=== PATIENT | female | born 1930 | race Caucasian/White ===

== ENCOUNTER 2020-02-06 13:49 | Inpatient (IN) ==
[2020-02-07] MEDS: Latanoprost 2.5 ML BOTTLE BOTH EYES SCH (17:44)
[2020-02-07] MEDS: carvediloL 6.25 MG TABLET PO SCH (17:44)
[2020-02-07] MEDS ORDERED: Warfarin perPT PO PRN (18:00)
[2020-02-07] MEDS: Acetaminophen 325 MG TABLET PO SCH (22:30)
[2020-02-08 06:00] LABS: Basophils % 0.5 %; Eosinophils # 0.2 K/mcL (0.0-0.6); Eosinophils % 3.9 %; Hematocrit 28.3 % (35.3-44.9); Hemoglobin 9.4 g/dL (11.5-15.4); Immature Granulocytes % 0.2 % (0-4); Lymphocytes # 2.2 K/mcL (0.6-4.6); Lymphocytes % 36.4 %; Mean Corpuscular HGB Conc 33.2 g/dL (31.6-35.5); Mean Corpuscular Volume 96.3 fL (83.0-100.0); Mean Platelet Volume 9.7 fL (9.4-12.4); Monocytes # 0.6 K/mcL (0.0-1.3); Monocytes % 9.6 %; Neutrophils # 2.9 K/mcL (1.6-8.9); Platelet Count 155 K/mcL (140-400); Red Blood Count 2.94 M/mcL (3.82-4.97); Red Cell Distribution Width 12.8 % (11.5-14.5); Segmented Neutrophils % 49.4 %; White Blood Count 5.9 K/mcL (4.3-11.1)
[2020-02-08 06:04] LABS: INR 2.5; Prothrombin Time 28.4 Seconds (9.4-12.1)
[2020-02-08 06:16] LABS: Albumin 3.1 g/dL (3.5-5.7); Albumin/Globulin Ratio 1.1 (1.1-2.2); Bilirubin,Total 0.5 mg/dL (0.3-1.0); Calcium 8.7 mg/dL (8.6-10.3); Globulin 2.7 g/dL (2.4-3.5); Magnesium 1.9 mg/dL (1.6-2.6); Potassium 4.2 mEq/L (3.5-5.1); Total Protein 5.8 g/dL (6.4-8.9)
[2020-02-08] MEDS: Aspirin Enteric Coated 81 MG Tablet PO SCH (08:39)
[2020-02-08] MEDS: PATIENT TAKING PO SCH (08:39)
[2020-02-08] MEDS: carvediloL 6.25 MG TABLET PO SCH ×2 (08:39→17:31)
[2020-02-08] MEDS: amLODIPine 5 MG TABLET PO SCH (08:39)
[2020-02-08] MEDS: Acetaminophen 325 MG TABLET PO SCH ×2 (08:39→20:18)
[2020-02-08] MEDS ORDERED: Furosemide 20 MG TABLET PO SCH (09:00)
[2020-02-08] MEDS ORDERED: Bisacodyl 10 MG RECTAL SUPPOSITORY RC PRN (17:12)
[2020-02-08] MEDS ORDERED: Lactulose Oral Soln 20 GM/30 ML UDC PO PRN (17:12)
[2020-02-08] MEDS: Latanoprost 2.5 ML BOTTLE BOTH EYES SCH (17:31)
[2020-02-08] MEDS: polyethylene glycoL 3350 17 GM POWD.PACK PO SCH (17:46)
[2020-02-08] MEDS ORDERED: *HR* Warfarin 2.5 MG TABLET PO ONE (18:00)
[2020-02-08] MEDS: Sennosides/Docusate Sodium TABLET PO SCH (20:18)
[2020-02-09 05:17] LABS: Hematocrit 27.1 % (35.3-44.9); Hemoglobin 9.2 g/dL (11.5-15.4); Mean Corpuscular HGB Conc 33.9 g/dL (31.6-35.5); Mean Corpuscular Hemoglobin 32.6 pg (28.0-33.3); Mean Corpuscular Volume 96.1 fL (83.0-100.0); Platelet Count 168 K/mcL (140-400); Red Blood Count 2.82 M/mcL (3.82-4.97); White Blood Count 6.1 K/mcL (4.3-11.1)
[2020-02-09 05:21] LABS: Prothrombin Time 23.1 Seconds (9.4-12.1)
[2020-02-09 05:34] LABS: Albumin 3.1 g/dL (3.5-5.7); Albumin/Globulin Ratio 1.1 (1.1-2.2); Bilirubin,Total 0.5 mg/dL (0.3-1.0); Calcium 8.7 mg/dL (8.6-10.3); Globulin 2.8 g/dL (2.4-3.5); Potassium 4.2 mEq/L (3.5-5.1); Total Protein 5.9 g/dL (6.4-8.9)
[2020-02-09] MEDS: Aspirin Enteric Coated 81 MG Tablet PO SCH (08:28)
[2020-02-09] MEDS: Acetaminophen 325 MG TABLET PO SCH ×2 (08:29→21:54)
[2020-02-09] MEDS: amLODIPine 5 MG TABLET PO SCH (08:29)
[2020-02-09] MEDS: Furosemide 20 MG TABLET PO SCH ×2 (08:29→16:58)
[2020-02-09] MEDS: Sennosides/Docusate Sodium TABLET PO SCH ×2 (08:29→21:54)
[2020-02-09] MEDS: polyethylene glycoL 3350 17 GM POWD.PACK PO SCH (08:30)
[2020-02-09] MEDS: carvediloL 6.25 MG TABLET PO SCH ×2 (08:30→16:58)
[2020-02-09] MEDS: PATIENT TAKING PO SCH (08:31)
[2020-02-09] MEDS: Latanoprost 2.5 ML BOTTLE BOTH EYES SCH (17:04)
[2020-02-09] MEDS ORDERED: *HR* Warfarin 5 MG TABLET PO ONE (18:00)
[2020-02-10 05:50] LABS: Hematocrit 28.6 % (35.3-44.9); Hemoglobin 9.6 g/dL (11.5-15.4); Mean Corpuscular HGB Conc 33.6 g/dL (31.6-35.5); Mean Corpuscular Volume 95.3 fL (83.0-100.0); Mean Platelet Volume 9.6 fL (9.4-12.4); Platelet Count 185 K/mcL (140-400); Red Cell Distribution Width 12.9 % (11.5-14.5); White Blood Count 6.1 K/mcL (4.3-11.1)
[2020-02-10 05:56] LABS: INR 1.9; Prothrombin Time 21.6 Seconds (9.4-12.1)
[2020-02-10 06:04] LABS: Calcium 8.7 mg/dL (8.6-10.3); Potassium 4.2 mEq/L (3.5-5.1)
[2020-02-10] MEDS: Sennosides/Docusate Sodium TABLET PO SCH ×2 (09:13→19:34)
[2020-02-10] MEDS: Acetaminophen 325 MG TABLET PO SCH ×2 (09:13→19:33)
[2020-02-10] MEDS: amLODIPine 5 MG TABLET PO SCH (09:13)
[2020-02-10] MEDS: PATIENT TAKING PO SCH (09:13)
[2020-02-10] MEDS: Aspirin Enteric Coated 81 MG Tablet PO SCH (09:13)
[2020-02-10] MEDS: carvediloL 6.25 MG TABLET PO SCH ×2 (09:13→16:45)
[2020-02-10] MEDS: Furosemide 20 MG TABLET PO SCH (09:14)
[2020-02-10] MEDS: polyethylene glycoL 3350 17 GM POWD.PACK PO SCH (09:14)
[2020-02-10] MEDS: Latanoprost 2.5 ML BOTTLE BOTH EYES SCH (16:46)
[2020-02-10] MEDS ORDERED: *HR* Warfarin 5 MG TABLET PO ONE (18:00)
[2020-02-10] MEDS: Melatonin 3 MG TABLET PO SCH (19:34)
[2020-02-11 05:22] LABS: INR 2.6
[2020-02-11] MEDS: polyethylene glycoL 3350 17 GM POWD.PACK PO SCH (08:49)
[2020-02-11] MEDS: Sennosides/Docusate Sodium TABLET PO SCH ×2 (08:50→19:54)
[2020-02-11] MEDS: Acetaminophen 325 MG TABLET PO SCH ×2 (08:50→19:54)
[2020-02-11] MEDS: Furosemide 20 MG TABLET PO SCH (08:50)
[2020-02-11] MEDS: amLODIPine 5 MG TABLET PO SCH (08:50)
[2020-02-11] MEDS: Aspirin Enteric Coated 81 MG Tablet PO SCH (08:50)
[2020-02-11] MEDS: carvediloL 6.25 MG TABLET PO SCH ×2 (08:50→17:06)
[2020-02-11] MEDS: PATIENT TAKING PO SCH (08:50)
[2020-02-11] MEDS ORDERED: CloNIDine Patch 0.1 MG PATCH (WEEKLY) TD SCH (09:30)
[2020-02-11] MEDS: Latanoprost 2.5 ML BOTTLE BOTH EYES SCH (17:08)
[2020-02-11] MEDS ORDERED: *HR* Warfarin 2.5 MG TABLET PO ONE (18:00)
[2020-02-11] MEDS: Melatonin 3 MG TABLET PO SCH (19:54)
[2020-02-12 05:35] LABS: INR 3.1; Prothrombin Time 35.3 Seconds (9.4-12.1)
[2020-02-12] MEDS: carvediloL 6.25 MG TABLET PO SCH ×2 (08:51→17:26)
[2020-02-12] MEDS: Aspirin Enteric Coated 81 MG Tablet PO SCH (08:51)
[2020-02-12] MEDS: Furosemide 20 MG TABLET PO SCH (08:51)
[2020-02-12] MEDS: amLODIPine 5 MG TABLET PO SCH (08:51)
[2020-02-12] MEDS: Acetaminophen 325 MG TABLET PO SCH ×2 (08:51→19:40)
[2020-02-12] MEDS: Sennosides/Docusate Sodium TABLET PO SCH ×2 (08:51→19:40)
[2020-02-12] MEDS: polyethylene glycoL 3350 17 GM POWD.PACK PO SCH (08:52)
[2020-02-12] MEDS: PATIENT TAKING PO SCH (08:53)
[2020-02-12] MEDS: Latanoprost 2.5 ML BOTTLE BOTH EYES SCH (17:26)
[2020-02-12] MEDS ORDERED: *HR* Warfarin 1 MG TABLET PO ONE (18:00)
[2020-02-12] MEDS: Melatonin 3 MG TABLET PO SCH (19:40)
[2020-02-13 05:44] LABS: Basophils % 0.6 %; Eosinophils # 0.2 K/mcL (0.0-0.6); Eosinophils % 4.8 %; Hematocrit 27.4 % (35.3-44.9); Hemoglobin 9.1 g/dL (11.5-15.4); Immature Granulocytes % 0.2 % (0-4); Lymphocytes # 1.7 K/mcL (0.6-4.6); Lymphocytes % 36.3 %; Mean Corpuscular HGB Conc 33.2 g/dL (31.6-35.5); Mean Corpuscular Hemoglobin 31.8 pg (28.0-33.3); Mean Corpuscular Volume 95.8 fL (83.0-100.0); Mean Platelet Volume 9.7 fL (9.4-12.4); Monocytes # 0.5 K/mcL (0.0-1.3); Monocytes % 10.3 %; Neutrophils # 2.3 K/mcL (1.6-8.9); Platelet Count 181 K/mcL (140-400); Red Blood Count 2.86 M/mcL (3.82-4.97); Red Cell Distribution Width 12.6 % (11.5-14.5); Segmented Neutrophils % 47.8 %; White Blood Count 4.8 K/mcL (4.3-11.1)
[2020-02-13 05:48] LABS: INR 2.9
[2020-02-13 06:00] LABS: Calcium 8.7 mg/dL (8.6-10.3)
[2020-02-13] MEDS: carvediloL 6.25 MG TABLET PO SCH ×2 (07:37→16:40)
[2020-02-13] MEDS: Furosemide 20 MG TABLET PO SCH (07:37)
[2020-02-13] MEDS: polyethylene glycoL 3350 17 GM POWD.PACK PO SCH (07:37)
[2020-02-13] MEDS: Sennosides/Docusate Sodium TABLET PO SCH ×2 (07:38→21:12)
[2020-02-13] MEDS: PATIENT TAKING PO SCH (07:38)
[2020-02-13] MEDS: amLODIPine 5 MG TABLET PO SCH (07:38)
[2020-02-13] MEDS: Acetaminophen 325 MG TABLET PO SCH ×2 (07:38→21:12)
[2020-02-13] MEDS: Aspirin Enteric Coated 81 MG Tablet PO SCH (07:38)
[2020-02-13] MEDS: Latanoprost 2.5 ML BOTTLE BOTH EYES SCH (16:40)
[2020-02-13] MEDS ORDERED: *HR* Warfarin 3 MG TABLET PO ONE (18:00)
[2020-02-13] MEDS: Melatonin 3 MG TABLET PO SCH (21:12)
[2020-02-14 05:50] LABS: INR 2.7; Prothrombin Time 30.5 Seconds (9.4-12.1)
[2020-02-14] MEDS: Sennosides/Docusate Sodium TABLET PO SCH ×2 (09:39→20:08)
[2020-02-14] MEDS: carvediloL 6.25 MG TABLET PO SCH ×2 (09:39→17:06)
[2020-02-14] MEDS: polyethylene glycoL 3350 17 GM POWD.PACK PO SCH (09:39)
[2020-02-14] MEDS: Aspirin Enteric Coated 81 MG Tablet PO SCH (09:39)
[2020-02-14] MEDS: amLODIPine 5 MG TABLET PO SCH (09:39)
[2020-02-14] MEDS: Acetaminophen 325 MG TABLET PO SCH ×2 (09:39→20:08)
[2020-02-14] MEDS: Furosemide 20 MG TABLET PO SCH (09:39)
[2020-02-14] MEDS: PATIENT TAKING PO SCH (09:40)
[2020-02-14] MEDS: Latanoprost 2.5 ML BOTTLE BOTH EYES SCH (17:07)
[2020-02-14] MEDS ORDERED: *HR* Warfarin 3 MG TABLET PO ONE (18:00)
[2020-02-14] MEDS: Melatonin 3 MG TABLET PO SCH (20:08)
[2020-02-15 06:20] LABS: Prothrombin Time 33.6 Seconds (9.4-12.1)
[2020-02-15] MEDS: polyethylene glycoL 3350 17 GM POWD.PACK PO SCH ×2 (08:43→08:46)
[2020-02-15] MEDS: amLODIPine 5 MG TABLET PO SCH (08:43)
[2020-02-15] MEDS: carvediloL 6.25 MG TABLET PO SCH ×2 (08:43→17:17)
[2020-02-15] MEDS: Furosemide 20 MG TABLET PO SCH (08:43)
[2020-02-15] MEDS: Aspirin Enteric Coated 81 MG Tablet PO SCH (08:43)
[2020-02-15] MEDS: Sennosides/Docusate Sodium TABLET PO SCH ×2 (08:43→20:37)
[2020-02-15] MEDS: Acetaminophen 325 MG TABLET PO SCH ×2 (08:43→20:37)
[2020-02-15] MEDS: PATIENT TAKING PO SCH (09:32)
[2020-02-15] MEDS: Latanoprost 2.5 ML BOTTLE BOTH EYES SCH (17:17)
[2020-02-15] MEDS ORDERED: *HR* Warfarin 1 MG TABLET PO ONE (18:00)
[2020-02-15] MEDS: Melatonin 3 MG TABLET PO SCH (20:37)
[2020-02-16 04:54] LABS: Prothrombin Time 33.6 Seconds (9.4-12.1)
[2020-02-16 06:59] VITALS: BP 169/81
[2020-02-16] MEDS: polyethylene glycoL 3350 17 GM POWD.PACK PO SCH (08:34)
[2020-02-16] MEDS: Sennosides/Docusate Sodium TABLET PO SCH (08:35)
[2020-02-16] MEDS: amLODIPine 5 MG TABLET PO SCH (08:35)
[2020-02-16] MEDS: Acetaminophen 325 MG TABLET PO SCH (08:35)
[2020-02-16] MEDS: Furosemide 20 MG TABLET PO SCH (08:35)
[2020-02-16] MEDS: carvediloL 6.25 MG TABLET PO SCH (08:35)
[2020-02-16] MEDS: Aspirin Enteric Coated 81 MG Tablet PO SCH (08:35)
[2020-02-16] MEDS: PATIENT TAKING PO SCH (08:36)
[2020-02-16] MEDS ORDERED: *HR* Warfarin 2 MG TABLET PO ONE (18:00)
== END 2020-02-16 15:23 | disposition home health service (06) | DRG 300 ==
LOC: INPGRE 02-07 15:33
PROVIDERS: ADMIT Family Medicine; ATTEND Family Medicine